=== PATIENT | male | born 1980 | race Caucasian/White ===

== ENCOUNTER 2016-05-23 17:11 | Observation (INO) | payer OTHER ==
[~2016-05-23] VITALS: Ht 175.3 cm; Wt 95.3 kg
[2016-05-23 21:24] LABS: HEMOGLOBIN 14.9 gm/dl (14.0-17.5); RED BLOOD COUNT 4.72 M/UL (4.20-5.50)
[2016-05-23 21:39] LABS: BUN/CREATININE RATIO 18 (0-10)
[2016-05-24] MEDS ORDERED: FLEXERIL 10 MG10 MG PO (08:21)
[2016-05-24 08:25] LABS: HEMOGLOBIN 15.5 gm/dl (14.0-17.5); RED BLOOD COUNT 4.97 M/UL (4.20-5.50)
== END 2016-05-24 18:20 | disposition home or self-care (01) ==
LOC: ER1 17:11 → M/S 23:34 → ZEROF 23:34 → M/S 05-24 07:57
PROVIDERS: Emergency Medicine; Internal Medicine Infectious Disease; ADMIT Internal Medicine
DX: F98.5 Adult onset fluency disorder (principal); D72.829 Elevated white blood cell count, unspecified; M62.838 Other muscle spasm; G93.0 Cerebral cysts; R42 Dizziness and giddiness; Z90.81 Acquired absence of spleen; Z88.2 Allergy status to sulfonamides; Z79.899 Other long term (current) drug therapy
CPT/HCPCS: 36415; 70450; 70490; 70553; 71010; 80053; 80307; 81001; 85025; 85610; 85730; 86140; 87040; 87086; 93005; 96374; 99285; A9577; G0378; J1200